=== PATIENT | female | born 1985 | race Caucasian/White ===

== ENCOUNTER 2018-11-07 10:38 | Emergency (ER) | payer OTHER, BC ==
[2018-11-07 11:18] LABS: ADD MAN DIFF? NO
[2018-11-07 11:24] LABS: BASOPHILS % 0.6 % (0.0-2.0); EOSINOPHILS % 0.6 % (0.0-7.0); HEMATOCRIT 39.4 % (37.0-47.0); HEMOGLOBIN 13.4 g/dl (12.0-16.0); LYMPHOCYTES # 2.6 10^3/ul (0.8-2.9); LYMPHOCYTES % 41.1 % (15.0-51.0); MEAN CORPUSCULAR HEMOGLOBIN 31.1 pg (29.0-33.0); MEAN CORPUSCULAR VOLUME 91.4 fl (82.0-101.0); MEAN PLATELET VOLUME 9.9 fl (7.4-10.4); MONOCYTE # 0.4 10^3/ul (0.3-0.9); MONOCYTES % 5.5 % (0.0-11.0); NEUTROPHIL # 3.3 10^3/ul (1.6-7.5); PLATELET COUNT 225 10^3/UL (140-415); RED BLOOD COUNT 4.31 10^6/ul (4.20-5.40); RED CELL DISTRIBUTION WIDTH 11.6 % (11.5-14.5)
[2018-11-07 11:24] LABS: WHITE BLOOD COUNT 6.3 10^3/ul (4.8-10.8)
[2018-11-07 11:27] LABS: ADD UMIC NO; UR ASCORBIC ACID NEGATIVE (NEGATIVE); UR BILIRUBIN (Dip) NEGATIVE (NEGATIVE); UR BLOOD (Dip) NEGATIVE (NEGATIVE); UR CLARITY CLEAR (CLEAR); UR COLOR STRAW (YELLOW); UR GLUCOSE (Dip) NEGATIVE (NEGATIVE); UR KETONES (Dip) NEGATIVE (NEGATIVE); UR LEUKOCYTE ESTERASE (Dip) NEGATIVE Leu/ul (NEGATIVE); UR NITRITE (Dip) NEGATIVE (NEGATIVE); UR TOTAL PROTEIN (Dip) NEGATIVE (NEGATIVE); UR UROBILINOGEN (Dip) NEGATIVE (NEGATIVE)
[2018-11-07] MEDS: ONDANSETRON 4 MG INJ IV (11:37)
[2018-11-07] MEDS: SOD CHLORIDE 0.9% 1,000 ML IV (11:37)
[2018-11-07 11:46] LABS: ALANINE AMINOTRANSFERASE 18 IU/L (13-69); ALBUMIN 3.9 g/dl (3.3-4.9); ALBUMIN/GLOBULIN RATIO 1.21; ALKALINE PHOSPHATASE 87 IU/L (42-121); ANION GAP 9 (5-13); ASPARTATE AMINO TRANSFERASE 17 IU/L (15-46); BILIRUBIN,INDIRECT 0.4 mg/dl (0-1.1); BILIRUBIN,TOTAL 0.4 mg/dl (0.2-1.3); BLOOD UREA NITROGEN 13 mg/dl (7-20); CALCIUM 9.1 mg/dl (8.4-10.2); CARBON DIOXIDE 24 mmol/L (21-31); CHLORIDE 103 mmol/L (97-110); CREATININE 0.48 mg/dl (0.44-1.00); Estimated GFR > 60 mL/min (>60); GLUCOSE 129 mg/dl (70-220); LIPASE 56 U/L (23-300); POTASSIUM 3.9 mmol/L (3.5-5.1); SODIUM 136 mmol/L (135-144); TOTAL PROTEIN 7.1 g/dl (6.1-8.1)
[2018-11-07] MEDS: KETOROLAC 15 MG INJ IV (11:48)
[2018-11-07] MEDS: IODIXANOL LOCM 100 ML BTL (11:57)
[2018-11-07] MEDS: IOHEXOL 100 ML (11:57)
[2018-11-07] MEDS: SOD CHLORIDE 0.9% 100 ML (11:57)
[2018-11-07 12:07] LABS: ETHANOL < 10.0 mg/dl (0-0)
[2018-11-07 12:10] LABS: HEMOGLOBIN A1C 5.5 % (0-5.9)
[2018-11-07] MEDS: PROCHLORPERAZINE 10 MG INJ IV (12:43)
[2018-11-07] MEDS: DEXAMETHASONE 4 MG/ML 1 ML INJ IV (12:43)
[2018-11-07] MEDS: MAGNESIUM SULFATE 2 GM/50 ML 50 ML IVPB (12:43)
[2018-11-07] MEDS: ASPIRIN 81 MG TAB PO (12:45)
[2018-11-07] MEDS: VALPROATE INJ 1,000 MG in DEXTROSE 5% 100 ML IVPB ×2 (13:13→13:23)
[2018-11-07 13:37] LABS: AMPHETAMINE/METHAMPHETAMINE NEGATIVE (NEGATIVE); BARBITURATES NEGATIVE (NEGATIVE); BENZODIAZEPINES NEGATIVE (NEGATIVE); CANNABINOIDS NEGATIVE (NEGATIVE); COCAINE NEGATIVE (NEGATIVE); OPIATES NEGATIVE (NEGATIVE)
[2018-11-07] MEDS ORDERED: LORAZEPAM 0.5 MG TAB PO (14:30)
[2018-11-07] MEDS ORDERED: ACETAMINOPHEN 325 MG TAB PO (14:30)
[2018-11-07] MEDS ORDERED: KETOROLAC 30 MG INJ IV ×2 (14:30→20:30)
[2018-11-07] MEDS ORDERED: ONDANSETRON 4 MG INJ IV (14:30)
[2018-11-07] MEDS ORDERED: NACL 0.9% 3 ML SYG IV (14:30)
[2018-11-08] MEDS ORDERED: ENOXAPARIN 40 MG/0.4 ML SYG SC (09:00)
== END 2018-11-07 15:34 | disposition left against medical advice (07) ==
LOC: E/R 10:38
DX: R20.2 Paresthesia of skin (principal); R40.2142 Coma scale, eyes open, spontaneous, at arrival to emergency department; R40.2362 Coma scale, best motor response, obeys commands, at arrival to emergency department; R40.2252 Coma scale, best verbal response, oriented, at arrival to emergency department; G43.411 Hemiplegic migraine, intractable, with status migrainosus; I63.9 Cerebral infarction, unspecified; E66.9 Obesity, unspecified
CPT/HCPCS: 36415; 70450; 70496; 70498; 71045; 80053; 80307; 81003; 81025; 83036; 83690; 85025; 93005; 96374; 96375; 99291-25